=== PATIENT | female | born 1970 | race Caucasian/White ===

== ENCOUNTER 2019-12-31 07:29 | Day surgery (SDC) | payer BC, OTHER ==
[~2019-12-31 07:29] MED LIST: Lactated Ringers 1,000 ML IV SCH
[2019-12-31] MEDS ORDERED: Propofol 200 MG/20 ML SDV ONE ×2 (08:56→09:06)
[2019-12-31] MEDS ORDERED: fentaNYL 100 MCG/2 ML SDV ONE (08:56)
--- NOTE | 2019-12-31 12:14 | OR ---
DATE OF SURGERY: 12/31/2019. REFERRING PROVIDER: Jihan Tilley PA-C PRE-OPERATIVE DIAGNOSES: Rectal bleeding, intermittent since August. This is the patient's 1st colonoscopy. There is no known family history of colon cancer or inflammatory bowel disease. She does have history of previous intussusception 15 to 18 years ago, as well as history of previous bowel obstruction requiring surgery. POST-OPERATIVE DIAGNOSES: 1. Minimal diverticulosis, noted. 2. Mild hemorrhoids. 3. Otherwise normal colon. PROCEDURE: Colonoscopy SURGEON: Brennen Conway M.D. ANESTHESIA: Monitored anesthesia care. BOWEL PREP: Good. Mena is a 49-year-old female, was brought to the endoscopy suite after discussing risks and benefits of the procedure. Informed consent was obtained for conscious sedation and colonoscopy with or without biopsy and/or polypectomy. We also discussed possibility of missed lesions. Pre-procedure exam was unremarkable. IV, oxygen, and monitors were placed. The patient was placed in the left lateral decubitus position. Sedation was administered and a digital rectal exam was performed which was unremarkable except for a palpable tampon in place due to the patient having current menses. Colonoscope was passed into the rectum and slowly advanced all the way to the cecum. Cecum was viewed and photographed. I did attempt several times to intubate the ileocecal valve but was unsuccessful. I did not see any inflammation of the opening of the ileocecal valve nor the cecum. The colonoscope was slowly withdrawn and the mucosa was closed observed in a direct circumferential manner. There was some minimal diffuse diverticulosis without any evidence of bleeding. The ascending colon was unremarkable. The transverse colon was unremarkable. The descending colon was unremarkable. The sigmoid colon was unremarkable. Retroflexion was performed and rectal mucosa revealed some mild hemorrhoids present, not acutely inflamed. Scope was removed. The patient tolerated the procedure well. The patient was monitored until that baseline status. Discharge instructions were reviewed and the patient was discharged in good condition. COMPLICATIONS: None. TOTAL TIME: 23 minutes. ESTIMATED BLOOD LOSS: None. RECOMMENDATIONS/FOLLOW-UP: The patient is good for 10 years with regard to colon cancer screening. If she continues to have bloody stools, this would require further evaluation including possibly EGD and maybe capsule endoscopy. The patient does state she has passed some clots as well as black stools previously, which may indicate source/s higher up than the colon. Could consider referral to Gastroenterology if capsule endoscopy and/or tagged red blood cell study indicated. I would like to kindly thank Jihan Tilley for this referral. DMB: 12/31/2019 10:41:55 MODL: 12/31/2019 11:49:56 /[id number] MTDD
== END 2019-12-31 10:40 | disposition home or self-care (01) ==
LOC: VM.SDS 07:29
PROVIDERS: ATTEND Family Medicine
DX: K57.31 Diverticulosis of large intestine without perforation or abscess with bleeding (principal); K64.8 Other hemorrhoids; Z11.59 Encounter for screening for other viral diseases; J45.30 Mild persistent asthma, uncomplicated; E53.8 Deficiency of other specified B group vitamins; G43.909 Migraine, unspecified, not intractable, without status migrainosus; L80 Vitiligo; M79.606 Pain in leg, unspecified; Z79.899 Other long term (current) drug therapy; Z88.0 Allergy status to penicillin; Z88.8 Allergy status to other drugs, medicaments and biological substances
CPT/HCPCS: 00811; 45378; 87635; J2704; J3010; J7120; U0002

== ENCOUNTER 2024-03-30 15:12 | Emergency (ER) | payer BC ==
[2024-03-30 15:38] LABS: BASOPHILS ABSOLUTE AUTO 0.1 x10^3/uL (0.0-0.2); EOSINOPHILS ABSOLUTE AUTO 0.3 x10^3/uL (0.0-0.5); EOSINOPHILS PERCENT AUTO 4.3 % (0.0-4.0); HEMATOCRIT 41.5 % (33.0-47.0); HEMOGLOBIN 13.7 g/dL (12.0-16.0); IMMATURE GRAN ABSOLUTE AUTO 0.01 x10^3/uL (0.00-0.07); LYMPHOCYTES ABSOLUTE AUTO 1.6 x10^3/uL (1.0-4.8); LYMPHOCYTES PERCENT AUTO 27.3 % (25.0-50.0); MEAN CORPUSCULAR HEMOGLOBIN 30.7 pg (26.0-32.0); MONOCYTES ABSOLUTE AUTO 0.6 x10^3/uL (0.0-0.8); MONOCYTES PERCENT AUTO 10.9 % (2.0-11.0); NEUTROPHILS ABSOLUTE AUTO 3.2 x10^3/uL (1.8-7.7); NEUTROPHILS PERCENT AUTO 56.3 % (50.0-80.0); PLATELET COUNT,PLT 266 x10^3/uL (130-400); RED BLOOD CELL COUNT 4.46 x10^6/uL (4.00-5.50); WHITE BLOOD CELL COUNT,WBC 5.8 x10^3/uL (4.0-10.0)
[2024-03-30] MEDS: diphenhydrAMINE 50 MG/ML SDV IM ONE (15:41)
[2024-03-30] MEDS: Ketorolac 30 MG/ML SDV IM ONE (15:41)
[2024-03-30 15:52] LABS: CHLORIDE,CL 109 mmol/L (98-107); POTASSIUM,K 3.9 mmol/L (3.5-4.5); SODIUM,NA 143 mmol/L (138-146)
[2024-03-30 15:53] LABS: ANION GAP 15.9 mmol/L (5-15); BLOOD UREA NITROGEN,BUN 12 mg/dL (8-26); CARBON DIOXIDE,CO2 22 mmol/L (23-30); ESTIMATED GFR 107 mL/min (>=60); GLUCOSE RANDOM 99 mg/dL (74-100)
[2024-03-30 16:36] LABS: CORONAVIRUS COVID-19 NAA NEGATIVE (NEGATIVE); INFLUENZA A NAA NEGATIVE (NEGATIVE); INFLUENZA B NAA NEGATIVE (NEGATIVE); RESPIRATORY SYNCYTIAL VIR NAA NEGATIVE (NEGATIVE)
[2024-03-30 17:42] LABS: CALCIUM 8.5 mg/dL (8.5-10.1)
== END 2024-03-30 17:54 | disposition home or self-care (01) ==
LOC: VM.ED 15:12
DX: G43.909 Migraine, unspecified, not intractable, without status migrainosus (principal); I10 Essential (primary) hypertension; Z79.51 Long term (current) use of inhaled steroids; Z79.899 Other long term (current) drug therapy; Z88.0 Allergy status to penicillin; Z88.8 Allergy status to other drugs, medicaments and biological substances
CPT/HCPCS: 0241U; 36415; 80048; 83735; 84484; 85025; 93005; 93010; 96372; 99283; 99284; J1200; J1885; J3230